=== PATIENT | female | born 1990 | race Caucasian/White ===

== ENCOUNTER 2016-12-14 23:32 | Emergency (ER) | payer OTHER ==
[~2016-12-14] VITALS: Ht 162.6 cm; Wt 86.4 kg
[2016-12-15 00:10] VITALS: BP 119/74
== END 2016-12-15 00:24 | disposition home or self-care (01) ==
LOC: EMS 23:33
DX: T63.441A Toxic effect of venom of bees, accidental (unintentional), initial encounter (principal); Y92.89 Other specified places as the place of occurrence of the external cause; J45.909 Unspecified asthma, uncomplicated
CPT/HCPCS: 99282

== ENCOUNTER 2018-09-02 21:16 | Emergency (ER) | payer OTHER ==
[~2018-09-02] VITALS: Ht 162.6 cm; Wt 81.8 kg
[2018-09-02] MEDS ORDERED: IBUPROFEN 800 MG TABLET PO ONE (21:30)
[2018-09-02] MEDS ORDERED: ALBU8HFA IH (21:31)
[2018-09-02 22:01] VITALS: BP 117/70
== END 2018-09-02 22:39 | disposition home or self-care (01) ==
LOC: EMS 21:19
DX: S90.122A Contusion of left lesser toe(s) without damage to nail, initial encounter (principal); J45.909 Unspecified asthma, uncomplicated; W01.0XXA Fall on same level from slipping, tripping and stumbling without subsequent striking against object, initial encounter; Y93.89 Activity, other specified; Y92.89 Other specified places as the place of occurrence of the external cause; Y99.8 Other external cause status

== ENCOUNTER 2018-10-17 08:00 | Emergency (ER) | payer OTHER ==
[~2018-10-17] VITALS: Ht 162.6 cm; Wt 81.8 kg
[~2018-10-17 08:00] MED LIST: ALBU8HFA IH
[2018-10-17 08:54] LABS: BASOPHILS % (AUTO) 0.3 % (0.0-2.0); EOSINOPHILS % (AUTO) 2.7 % (1.0-6.0); HEMATOCRIT 38.7 % (36-46); HEMOGLOBIN 12.4 g/dL (12.0-16.0); LYMPHOCYTES # (AUTO) 1.5 K/uL (1.0-4.8); LYMPHOCYTES % (AUTO) 20.8 % (22.0-44.0); MEAN CORPUSCULAR HEMOGLOBIN 26.7 pg (26.0-34.0); MEAN CORPUSCULAR VOLUME 84 fL (80-100); MONOCYTES # (AUTO) 0.5 K/uL (0.1-1.0); MONOCYTES % (AUTO) 7.3 % (2.0-9.0); NEUTROPHILS % (AUTO) 68.9 % (40.0-70.0); PLATELET COUNT (AUTO) 308 K/uL (150-450); RED BLOOD CELL COUNT(AUTO) 4.64 MIL/uL (4.00-5.20); RED CELL DISTRIBUTION WIDTH 14.5 % (11.5-14.5)
[2018-10-17 09:14] LABS: ANION GAP 7 mmol/L (8-16); CARBON DIOXIDE 25 mmol/L (22-29); CHLORIDE 105 mmol/L (98-107); CREATININE 0.78 mg/dL (0.60-1.30); GLOMERULAR FILTR. RATE CALC > 60 mL/min (>60); GLUCOSE,RANDOM 90 mg/dL (70-110); POTASSIUM 4.4 mmol/L (3.5-5.1); SODIUM SERUM 137 mmol/L (136-145); UREA NITROGEN, BLOOD 8 mg/dL (7-18)
[2018-10-17] MEDS ORDERED: ACETAMINOPHEN 500 MG TABLET PO ONE (09:15)
[2018-10-17] MEDS ORDERED: DIPHENOXYLATE/ATROP 2.5-0.025 MG TABLET PO ONE (09:15)
[2018-10-17] MEDS ORDERED: SODIUM CHLORIDE 0.9% 2,000 ML IV ONE (09:15)
[2018-10-17] MEDS ORDERED: ONDANSETRON HCL 4 MG/2 ML VIAL IVP ONE (09:15)
[2018-10-17 09:27] LABS: ALANINE AMINOTRANSFERASE 21 U/L (12-78); ALBUMIN 3.5 g/dL (3.4-5.0); ALKALINE PHOSPHATASE 68 U/L (46-116); ASPARTATE AMINOTRANSFERASE 21 U/L (15-37); BILIRUBIN,TOTAL 0.4 mg/dL (0.1-1.0); HCG,QUANTITATIVE < 1 mIU/mL (0-6); LIPASE 95 U/L (73-393); TOTAL PROTEIN, SERUM 7.1 g/dL (6.4-8.2)
[2018-10-17 12:34] VITALS: BP 102/69
== END 2018-10-17 12:35 | disposition home or self-care (01) ==
LOC: EMS 08:01
DX: K52.9 Noninfective gastroenteritis and colitis, unspecified (principal); R51 Headache; J45.909 Unspecified asthma, uncomplicated; Z79.899 Other long term (current) drug therapy
CPT/HCPCS: 36415; 80053; 83690; 84702; 85025; 96361; 96374; 99283; J2405; J7030